=== PATIENT | male | born 2000 | race Caucasian/White ===

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

== ENCOUNTER 2022-01-08 20:21 | Emergency (ER) | payer MEDICAID ==
[2022-01-08] MEDS ORDERED: Take Home: Amoxicillin 875 MG Tab, 2 Tab Pack PO ONE (21:05)
== END 2022-01-08 21:11 | disposition home or self-care (01) ==
LOC: VM.ED 20:21
DX: J02.0 Streptococcal pharyngitis (principal)
CPT/HCPCS: 87651-QW; 99283; A9270-GY